=== PATIENT | female | born 2000 | race Caucasian/White ===

== ENCOUNTER 2022-07-20 06:13 | Outpatient (CLI) | payer MEDICAID ==
[~2022-07-20] VITALS: Ht 149.9 cm; Wt 123.6 kg
[2022-07-20] MEDS ORDERED: PROM25TA14 PO (09:30)
[2022-07-20] MEDS ORDERED: PHEN-483 PO (09:30)
[2022-07-20] MEDS ORDERED: VENL37.52 PO (09:45)
[2022-07-20] MEDS ORDERED: SUMA25TA4 PO (09:45)
[2022-07-20] MEDS ORDERED: IPRA3AMP31 IH (09:45)
== END 2022-07-20 09:59 | disposition home or self-care (01) ==
LOC: PREOP 06:13
PROVIDERS: ATTEND Otolaryngology Otolaryngology/Facial Plastic Surgery
DX: Z01.818 Encounter for other preprocedural examination (principal)

== ENCOUNTER 2022-07-27 07:18 | Day surgery (SDC) | payer MEDICAID ==
[2022-07-27] VITALS (9 sets, daily range): BP systolic 100–142; BP diastolic 58–92
[~2022-07-27] VITALS: Ht 150 cm; Wt 123.6 kg
[~2022-07-27 07:18] MED LIST: IPRA3AMP31 IH; PHEN-483 PO; PROM25TA14 PO; SUMA25TA4 PO; VENL37.52 PO
[2022-07-27] MEDS ORDERED: LACTATED RINGERS 1,000 ML IV PRN (07:30)
[2022-07-27] MEDS ORDERED: MIDAZOLAM 2 MG/2 ML (VERSED) VIAL IV ONE (08:30)
[2022-07-27] MEDS ORDERED: ONDANSETRON 4 MG/2 ML (SDV) Z0FRAN ONE (09:22)
[2022-07-27] MEDS ORDERED: proPOfol 200 MG/20 ML (DIPRIVAN) VIAL IV ONE (09:22)
[2022-07-27] MEDS ORDERED: fentaNYL INJ 100 MCG/2 ML AMP ONE (09:22)
[2022-07-27] MEDS ORDERED: SEVOFLURANE (ULTANE) 15 ML INHAL SOLN ONE (09:22)
[2022-07-27] MEDS ORDERED: MIDAZOLAM 2 MG/2 ML (VERSED) VIAL ONE (09:22)
[2022-07-27] MEDS ORDERED: LIDOCAINE PF 2% 5 ML (XYLOCAINE) VIAL ONE (09:22)
--- NOTE | 2022-07-27 09:43 | Progress Note-Pre Operative ---
Pre-Operative Progress Note Date of Available H&P: Jul 27, 2022 Date H&P Reviewed: Jul 27, 2022 Time H&P Reviewed: 09:30 History & Physical: H&P Reviewed, Patient Examed, No changes noted Changes from last HP none Pre-Operative Diagnosis: Right UBALDO CHERRIE MUJICA MD Jul 27, 2022 09:43
--- NOTE | 2022-07-27 09:44 | Progress Note-Post Operative ---
Post-Operative Progess Note Surgeon (s)/Records Management Assistant (s) Surgeon CHERRIE MUJICA MD Records Management Assistant n/a Pre-Operative Diagnosis Right UBALDO Post-Operative Diagnosis same Post-Op Procedure Note Date of Procedure: Jul 27, 2022 Name of Procedure Performed: Right Myr with Tube Description & Findings Description and Findings: n/a Anesthesia Type lma Estimated Blood Loss minimal Packing none. Specimen(s) collected/removed none CHERRIE MUJICA MD Jul 27, 2022 09:44
[2022-07-27] MEDS ORDERED: APAP 325 MG/10.15 ML LIQ (TYLENOL) UDC PO PRN (09:45)
--- NOTE | 2022-07-27 09:56 | Anesthesia-General Post-Op ---
General Patient Condition Mental Status/LOC: Same as Preop Cardiovascular: Satisfactory Nausea/Vomiting: Absent Respiratory: Satisfactory Pain: Controlled Complications: Absent Post Op Complications Complications None Follow Up Care/Instructions Patient Instructions None needed. Anesthesia/Patient Condition Patient Condition Patient is doing well, no complaints, stable vital signs, no apparent adverse anesthesia problems. No complications reported per nursing. VLAD HUMPHRIES SUPERINTENDENT COMMUNICATIONS Jul 27, 2022 09:56
[2022-07-27] MEDS ORDERED: ONDANSETRON 4 MG/2 ML (SDV) Z0FRAN IVP PRN (10:00)
[2022-07-27] MEDS ORDERED: MEPERIDINE (DEMEROL) INJ 50 MG/ML IVP ONE (10:00)
[2022-07-27] MEDS ORDERED: fentaNYL INJ 100 MCG/2 ML AMP IVP ONE (10:00)
[2022-07-27] MEDS ORDERED: OFLO5DRO33 EACH EAR (10:29)
== END 2022-07-27 11:20 | disposition home or self-care (01) ==
LOC: SDC 07:18
PROVIDERS: ATTEND Otolaryngology Otolaryngology/Facial Plastic Surgery
DX: H65.21 Chronic serous otitis media, right ear (principal); H69.91 Unspecified Eustachian tube disorder, right ear
CPT/HCPCS: 84703; 87081